=== PATIENT | female | born 1995 | race African-American/Black ===

== ENCOUNTER 2021-04-19 11:10 | Emergency (ER) | payer MEDICAID ==
[~2021-04-19] VITALS: Ht 162.6 cm; Wt 53.0 kg
[2021-04-19 12:35] LABS: CLARITY URINE CLEAR (CLEAR); COLOR URINE YELLOW (YELLOW); KETONES URINE NEGATIVE (NEGATIVE); LEUKOCYTE ESTERASE URINE NEGATIVE (NEGATIVE); NITRITE URINE NEGATIVE (NEGATIVE); OCCULT BLOOD URINE NEGATIVE (NEGATIVE); PROTEIN URINE NEGATIVE (NEGATIVE); SPECIFIC GRAVITY URINE 1.006 (1.005-1.030); UROBILINOGEN URINE 0.2 E.U./dL (0.2-1.0)
[2021-04-19 12:53] LABS: *BARBITURATES SCREEN URINE NEGATIVE (NEGATIVE)
[2021-04-19 12:54] LABS: OPIATES URINE SCREEN NEGATIVE (NEGATIVE)
[2021-04-19 12:59] LABS: *BENZODIAZEPINES SCREEN URINE NEGATIVE (NEGATIVE)
[2021-04-19 13:00] LABS: PHENCYCLIDINE URINE SCREEN NEGATIVE (NEGATIVE)
[2021-04-19 13:03] LABS: METHADONE URINE SCREEN NEGATIVE (NEGATIVE)
[2021-04-19 13:41] LABS: *AMPHETAMINES SCREEN URINE PRESUMTIVE POSITIVE (NEGATIVE)
[2021-04-19 13:42] LABS: *COCAINE SCREEN URINE PRESUMTIVE POSITIVE (NEGATIVE); CANNABINOID URINE SCREEN PRESUMTIVE POSITIVE (NEGATIVE)
[2021-04-19 14:34] VITALS: BP 143/76
== END 2021-04-19 14:36 | disposition home or self-care (01) ==
LOC: ER 13:49
DX: S20.211A Contusion of right front wall of thorax, initial encounter (principal); F15.10 Other stimulant abuse, uncomplicated; F14.90 Cocaine use, unspecified, uncomplicated; F12.10 Cannabis abuse, uncomplicated; X58.XXXA Exposure to other specified factors, initial encounter; Y93.I9 Activity, other involving external motion; Y92.9 Unspecified place or not applicable
CPT/HCPCS: 71045; 73030; 80305; 81003; 81025; 93005; 99284